=== PATIENT | male | born 1965 | race Caucasian/White ===

== ENCOUNTER 2017-12-09 10:34 | Inpatient (IN) | payer OTHER ==
[~2017-12-09] VITALS: Ht 170.2 cm; Wt 67.1 kg
[2017-12-09] MEDS ORDERED: OPTIRAY 320 IV PRN (11:15)
[2017-12-09 11:38] LABS: BASO % 0.6 %; BASO ABS # 0.06 K/uL (0-0.2); EOS % 3.4 %; EOS ABS # 0.33 K/uL (0-0.5); HEMATOCRIT 42.8 % (42-52); HEMOGLOBIN 14.7 g/dL (14.0-18.0); IG# 0.02 K/uL (0.00-0.02); LYMPH % 16.7 %; LYMPH ABS # 1.62 K/uL (1.2-3.4); MEAN CORPUSCULAR HEMOGLOBIN 29.9 pg (25-34); MEAN CORPUSCULAR HGB CONC 34.3 g/dl (32-36); MEAN PLATELET VOLUME 8.9 fL (7.4-10.4); MONO % 7.6 %; MONO ABS # 0.74 K/uL (0.11-0.59); NEUT % 71.5 %; NEUT ABS # 6.93 K/uL (1.4-6.5); PLATELET COUNT 386 K/uL (130-400); RED CELL DISTRIBUTION WIDTH CV 13.1 % (11.5-14.5); RED CELL DISTRIBUTION WIDTH SD 41.6 fL (36.4-46.3)
[2017-12-09 11:42] LABS: ISTAT CREATININE 0.8 mg/dl (0.6-1.3); ISTAT IONIZED CALCIUM 1.14 mmol/l (1.12-1.32); ISTAT POTASSIUM 4.6 mEq/L (3.3-5.0)
[2017-12-09 11:47] LABS: PTT PATIENT 31.5 SECONDS (21.0-31.0)
[2017-12-09 11:56] LABS: ALBUMIN 4.1 gm/dl (3.4-5.0); CALCIUM 9.2 mg/dl (8.5-10.1); CREATININE 0.76 mg/dl (0.60-1.40)
[2017-12-09 11:59] LABS: TOTAL PROTEIN 7.8 gm/dl (6.4-8.2)
[2017-12-09] MEDS ORDERED: ASPI81TA28 PO (11:59)
[2017-12-09] MEDS ORDERED: AMLO-114 PO (11:59)
--- NOTE | 2017-12-09 12:02 | DIAGNOSTIC IMAGING REPORT ---
HEAD WITHOUT CONTRAST (CT) CT DOSE: HISTORY: Mental status change stroke like symtpooms for 3 days resolved TECHNIQUE: Multiaxial CT images of the head were performed without the use of intravenous contrast. A dose lowering technique was utilized adhering to the principles of ALARA. Comparison: None. Findings: The paranasal sinuses and mastoid air cells are clear. The calvarium and skull base are intact. The ventricles and sulci are within normal limits. There is no mass, hematoma, midline shift, or acute infarct. There appears to be a potential subacute infarct in subcortical position left superior parietal lobe. There is no evidence for acute intracranial hemorrhage. There is no midline shift. Calcification of the basal ganglia is noted bilaterally. Impression: 1. Small subacute/early chronic cortical infarct left superior parietal lobe. 2. Study is otherwise negative. The above report was generated using voice recognition software. It may contain grammatical, syntax or spelling errors. Electronically signed by: Sergio Ramon M.D. 12/09/2017 12:01 PM Dictated Date/Time: 12/09/2017 11:57 AM
--- NOTE | 2017-12-09 12:04 | DIAGNOSTIC IMAGING REPORT ---
CT HEAD ANGIO WITH CONTRAST CLINICAL HISTORY: Stroke like symptoms. Right carotid bruit. TECHNIQUE: CT angiography of the head was performed in a dynamic helical fashion during intravenous administration of 120 cc of Optiray 320. A dose lowering technique was utilized adhering to the principles of ALARA. MIP imaging was performed. CT DOSE: COMPARISON STUDY: No previous studies for comparison. FINDINGS: The high left cervical internal carotid artery appears occluded. There is reconstitution of the left internal carotid artery at the cavernous level. The left supraclinoid carotid is small. There are no intracranial branch occlusions. There are no lesion suspicious for aneurysm. There is no evidence of dural venous sinus thrombosis. IMPRESSION: 1. No evidence of aneurysm 2. Occlusion of the left internal carotid artery with reconstitution at the level of the cavernous carotid Electronically signed by: Jhoan Dior M.D. 12/09/2017 12:03 PM Dictated Date/Time: 12/09/2017 12:00 PM
--- NOTE | 2017-12-09 12:13 | DIAGNOSTIC IMAGING REPORT ---
CT NECK ANGIO WITH CONTRAST CLINICAL HISTORY: Stroke like symptoms. Right carotid bruit. COMPARISON STUDY: No previous studies for comparison. TECHNIQUE: CT angiography was performed from the aortic arch to the skull base. MIP imaging was performed. The patient was scanned in a dynamic helical fashion during intravenous administration of 120 cc of Optiray 320. A dose lowering technique was utilized adhering to the principles of ALARA. CT DOSE: 1271.69 mGy.cm Technique: CT angiogram of the carotid and vertebral arteries was obtained using intravenous contrast and 3-D reconstruction. NASCET criteria was utilized. Findings: There are extensive atheromatous changes present the level of the right carotid bulb. There is a 75% diameter stenosis of the proximal right internal carotid artery. The left internal carotid artery is occluded at its origin. There is reconstitution at the level of the left cavernous carotid. There is a high-grade stenosis of the proximal left external carotid artery. There is dense calcification of the left vertebral origin. A hemodynamically significant stenosis is likely present, as there is poststenotic dilatation. A lucency within the proximal basilar artery likely represents a fenestration. There is no evidence of hemodynamic significant right vertebral artery stenosis. The right vertebral artery appears dominant IMPRESSION: 1. Occlusion of the left internal carotid artery at its origin with reconstitution at the level of the left cavernous carotid 2. 75% diameter stenosis of the proximal right internal carotid artery 3. Hemodynamically significant stenosis involving the left vertebral artery origin 4. High-grade stenosis of the proximal left external carotid artery Electronically signed by: Jhoan Dior M.D. 12/09/2017 12:12 PM Dictated Date/Time: 12/09/2017 12:03 PM
[2017-12-09 12:21] LABS: INFLUENZA B ANTIGEN Neg for Influ B (NEG)
[2017-12-09] MEDS ORDERED: ASPIRIN 81 MG ECTAB PO STA (12:29)
[2017-12-09] MEDS ORDERED: PHARMACIST DISCHARGE MED REC CONSULT PRN (13:15)
[2017-12-09] MEDS ORDERED: ACETAMINOPHEN 325 MG TAB PO PRN (13:15)
[2017-12-09] MEDS ORDERED: CLONIDINE HCL 0.1 MG TAB PO PRN (13:15)
[2017-12-09] MEDS ORDERED: ONDANSETRON INJ 2 MG/ML 2 ML VIAL IV PRN (13:15)
[2017-12-09] MEDS ORDERED: MAGNESIUM HYDROXIDE SUSP 30 ML UDC PO PRN (13:15)
--- NOTE | 2017-12-09 13:15 | History and Physical ---
History & Physical Date & Time of Service: Dec 09, 2017 at 13:14 Chief Complaint: Stroke Symptoms Primary Care Physician: Cory TOUSSAINT History of Present Illness Source: patient 52 year old male with history of HTN, Smoking presenting with episode of expressive aphasia and dysarthria. Last Wednesday, patient while reading at night, noticed that he had difficulty understanding what he was reading. This lasted about 2 hours. Yesterday, patient apparently had episodes of expressive aphasia and dysarthria as well. Today, patient was sent to the ER for further evaluation. CT head showed Small subacute/early chronic cortical infarct left superior parietal lobe. CT angio of the neck showed: R 100% occlusion L 75% stenosis. On exam, patient states he is back to baseline, denies any neurologic symptom. Denies any other symptoms. States he feels fine. Family History Stroke- Father Social History Smoking Status: Current Every Day Smoker Alcohol Use: occasionally Allergies Coded Allergies: No Known Allergies (Unverified , 12/09/17) Home Medications Scheduled Amlodipine (Norvasc), 10 MG PO 0630 Aspirin (Aspirin Ec), 81 MG PO 1830 Review of Systems Constitutional- no fever; no weight loss Eyes- no acute visual changes ENT- no sinus drainage; no pharyngitis Pulmonary- no cough, no wheezing, no shortness of breath Cardiac- no chest pain, no palpitations, no orthopnea, no dependent edema GI- no nausea, no vomiting, no diarrhea, no melena, no hematochezia - no dysuria, no hematuria Musculoskeletal- no arthralgias, no myalgias Derm- no rashes, no new skin lesions, no changing skin lesions Hematologic- no unusual bruising, no unusual bleeding Lymphatics- no adenopathy Endocrine- no polyuria or polydipsia; no heat or cold intolerance Neuro- (+) as noted above Psych- no anxiety, no depression Physical Exam Vital Signs Date Time Temp Pulse Resp B/P (MAP) Pulse Ox O2 Delivery O2 Flow Rate FiO2 12/09/17 12:34 63 17 96 12/09/17 12:30 62 18 97 Room Air 134/77 12/09/17 12:00 137/77 12/09/17 11:55 137/80 12/09/17 11:22 147/81 12/09/17 11:05 69 12/09/17 11:00 132/79 12/09/17 10:58 68 18 138/85 100 Room Air 12/09/17 10:36 36.5 75 18 142/81 100 Room Air General Appearance: WD/WN, no apparent distress Head: normocephalic, atraumatic Eyes: normal inspection, PERRL, EOMI, sclerae normal ENT: normal ENT inspection, hearing grossly normal, pharynx normal Neck: supple, no adenopathy, thyroid normal, no JVD, trachea midline Respiratory/Chest: chest non-tender, lungs clear, normal breath sounds, no respiratory distress, no accessory muscle use Cardiovascular: regular rate, rhythm, no edema, no JVD, no murmur Abdomen/GI: normal bowel sounds, non tender, soft Back: normal inspection, no CVA tenderness Extremities/Musculoskelatal: normal inspection, no calf tenderness, normal capillary refill, no pedal edema, normal range of motion, non-tender Neurologic/Psych: manager critical care unit II-XII nml as tested, no motor/sensory deficits, alert, normal reflexes, oriented x 3 Skin: normal color, warm/dry, no rash Lymphatic: no adenopathy Diagnostics Laboratory Results Results Past 24 Hours Test 12/09/17 11:15 12/09/17 11:16 12/09/17 11:22 12/09/17 11:25 Range/Units White Blood Count 9.70 4.8-10.8 K/uL Red Blood Count 4.92 4.7-6.1 M/uL Hemoglobin 14.7 14.0-18.0 g/dL Hematocrit 42.8 42-52 % Mean Corpuscular Volume 87.0 80-100 fL Mean Corpuscular Hemoglobin 29.9 25-34 pg Mean Corpuscular Hemoglobin Concent 34.3 32-36 g/dl Platelet Count 386 130-400 K/uL Mean Platelet Volume 8.9 7.4-10.4 fL Neutrophils (%) (Auto) 71.5 % Lymphocytes (%) (Auto) 16.7 % Monocytes (%) (Auto) 7.6 % Eosinophils (%) (Auto) 3.4 % Basophils (%) (Auto) 0.6 % Neutrophils # (Auto) 6.93 1.4-6.5 K/uL Lymphocytes # (Auto) 1.62 1.2-3.4 K/uL Monocytes # (Auto) 0.74 0.11-0.59 K/uL Eosinophils # (Auto) 0.33 0-0.5 K/uL Basophils # (Auto) 0.06 0-0.2 K/uL RDW Standard Deviation 41.6 36.4-46.3 fL RDW Coefficient of Variation 13.1 11.5-14.5 % Immature Granulocyte % (Auto) 0.2 % Immature Granulocyte # (Auto) 0.02 0.00-0.02 K/uL Prothrombin Time 11.0 9.0-12.0 SECONDS Prothromb Time International Ratio 1.0 0.9-1.1 Activated Partial Thromboplast Time 31.5 21.0-31.0 SECONDS Partial Thromboplastin Ratio 1.2 Sodium Level 137 136-145 mmol/L Potassium Level 4.0 3.5-5.1 mmol/L Chloride Level 104 98-107 mmol/L Carbon Dioxide Level 27 21-32 mmol/L Anion Gap 6.0 12.0 16-25 mmol/L Blood Urea Nitrogen 7 7-18 mg/dl Creatinine 0.76 0.60-1.40 mg/dl Est Creatinine Clear Calc Drug Dose 107.5 ml/min Estimated GFR () 119.9 Estimated GFR (Non- 103.4 BUN/Creatinine Ratio 9.4 10-20 Random Glucose 89 70-99 mg/dl Calcium Level 9.2 8.5-10.1 mg/dl Total Bilirubin 1.0 0.2-1 mg/dl Aspartate Amino Transf (AST/SGOT) 14 15-37 U/L Alanine Aminotransferase (ALT/SGPT) 18 12-78 U/L Alkaline Phosphatase 61 45-117 U/L Total Protein 7.8 6.4-8.2 gm/dl Albumin 4.1 3.4-5.0 gm/dl Globulin 3.7 2.5-4.0 gm/dl Albumin/Globulin Ratio 1.1 0.9-2 Bedside Glucose 98 70-99 mg/dl Bedside Hemoglobin 14.6 14.0-18.0 g/dl Bedside Hematocrit 43 42-52 % Bedside Sodium 139 135-144 mEq/L Bedside Potassium 4.6 3.3-5.0 mEq/L Bedside Chloride 103 101-112 mEq/L Bedside Total CO2 30 24-31 mEq/l Bedside Blood Urea Nitrogen 7 7-18 mg/dl Bedside Creatinine 0.8 0.6-1.3 mg/dl Bedside Glucose (other) 93 70-99 mg/dl Bedside Ionized Calcium (Becky) 1.14 1.12-1.32 mmol/l Influenza Type A Antigen Neg for Influ A NEG Influenza Type B Antigen Neg for Influ B NEG Test 12/09/17 13:08 Range/Units Diagnostic Radiology CT head: as noted in H&P EKG HR normal regular rhythm, no signs of acute ischemia Impression Assessment and Plan 52 year old male with history of HTN, Smoking presenting with episode of expressive aphasia and dysarthria. ACUTE CVA, LEFT PARIETAL LOBE BILATERAL CAROTID ARTERY STENOSIS - hold Amlodipine maintain BP on the higher side for brain perfusion - Stroke Protocol ordered - Echo ordered - Plavix added to ASA Lipitor also started - check A1c and Lipid profile - will consult Neuro and Vascular Surg HTN - mgt as noted above DVT proph - Lovenox Full Code per patient Dispo [facility] once work up is complete and patient is medically stable VTE Prophylaxis VTE Risk Assessment Done? Y/N: Yes Risk Level: Moderate Given or contraindicated: Enoxaparin (Lovenox)SQ
[2017-12-09] MEDS ORDERED: CLOPIDOGREL BISULFATE 75 MG TAB PO ONE (13:30)
--- NOTE | 2017-12-09 14:02 | EMERGENCY ROOM VISIT NOTE ---
History Report prepared by Divineibmariel: Yoav Hughes Under the Supervision of: Dr. Brayan Diaz M.D. First contact with patient: 10:42 Chief Complaint: STROKE SYMPTOMS Stated Complaint: STROKE SYMPTOMS Nursing Triage Summary: pt here from [facility] 3 days slurred speech, lack of coordination, left facial droop, right cartoid bruit. no facial droop noted in triage pt able to answer questions . states unable to read book. pt able to ambulate to triage on own. states he is not having problems gripping cup or glass History of Present Illness The patient is a 52 year old male who presents to the Emergency Room with complaints of resolved neurologic symptoms beginning three days ago. His primary symptom has been slurred speech and difficulty speaking. He is an inmate at [facility]. The patient states that he was able to think of the words, but has had difficulty speaking the words. He states that his symptoms improved today. He states "I am not sure why they brought me in today honestly" . He denies LOC, or recent head injury. Source of History: patient Onset: Three days ago Quality: other (slurred speech and difficulty speaking) Timing: resolved Associated Symptoms: No LOC Note: Additional symptoms: Review of Systems See HPI for pertinent positives and negatives. A total of ten systems were reviewed and were otherwise negative. Past Medical & Surgical Medical Problems: (1) Acute ischemic stroke (2) No Known Active Medical Problems Family History No pertinent family history stated. Social History Smoking Status: Current Every Day Smoker Housing Status: other (incarcerated) Occupation Status: other (incarcerated) Current/Historical Medications Scheduled Amlodipine (Norvasc), 10 MG PO 0630 Aspirin (Aspirin Ec), 81 MG PO 1830 Allergies Coded Allergies: No Known Allergies (Unverified , 12/09/17) Physical Exam Vital Signs Date Time Temp Pulse Resp B/P (MAP) Pulse Ox O2 Delivery O2 Flow Rate FiO2 12/09/17 12:34 63 17 96 12/09/17 12:30 62 18 97 Room Air 134/77 12/09/17 12:00 137/77 12/09/17 11:55 137/80 12/09/17 11:22 147/81 12/09/17 11:05 69 12/09/17 11:00 132/79 12/09/17 10:58 68 18 138/85 100 Room Air 12/09/17 10:36 36.5 75 18 142/81 100 Room Air Physical Exam GENERAL: Awake, alert, well-appearing, in no distress. Handcuffed to bed. HENT: Normocephalic, Atraumatic. no hemotympanum bilaterally, sabillon sign negative bilaterally. Oropharynx unremarkable. EYES: Normal conjunctiva. Sclera non-icteric. PERRL bilaterally. EOMI bilaterally. NECK: Supple. No nuchal rigidity. FROM. No JVD. No C-spine tenderness. Right carotid bruit noted. No left carotid bruit. RESPIRATORY: Clear to auscultation. No wheezes, rhonchi or rales bilaterally. CARDIAC: Regular rate, normal rhythm. Extremities warm and well perfused. Equal palpable radial pulses to the bilateral upper extremities. Equal palpable DP pulses to the bilateral lower extremities. ABDOMEN: Soft, non-distended. No tenderness to palpation. No rebound or guarding. No masses. Rovsig Negative. RECTAL: Deferred. MUSCULOSKELETAL: Chest examination reveals no tenderness. The back is symmetrical on inspection without obvious abnormality. There is no CVA tenderness to palpation. No joint edema. LOWER EXTREMITIES: Calves are equal size bilaterally and non-tender. No edema. No discoloration. NEURO: Normal sensorium. No sensory or motor deficits noted. No pronator drift. No facial droop. No dysarthria. NIHSS 0 SKIN: No rash or jaundice noted. Medical Decision & Procedures ER Provider Diagnostic Interpretation: Radiology results as stated below per my review and radiologist interpretation: HEAD WITHOUT CONTRAST (CT) Findings: The paranasal sinuses and mastoid air cells are clear. The calvarium and skull base are intact. The ventricles and sulci are within normal limits. There is no mass, hematoma, midline shift, or acute infarct. There appears to be a potential subacute infarct in subcortical position left superior parietal lobe. There is no evidence for acute intracranial hemorrhage. There is no midline shift. Calcification of the basal ganglia is noted bilaterally. Impression: 1. Small subacute/early chronic cortical infarct left superior parietal lobe. 2. Study is otherwise negative. The above report was generated using voice recognition software. It may contain grammatical, syntax or spelling errors. Electronically signed by: Sergio Ramon M.D. 12/09/2017 12:[address] NECK ANGIO WITH CONTRAST Findings: There are extensive atheromatous changes present the level of the right carotid bulb. There is a 75% diameter stenosis of the proximal right internal carotid artery. The left internal carotid artery is occluded at its origin. There is reconstitution at the level of the left cavernous carotid. There is a high-grade stenosis of the proximal left external carotid artery. There is dense calcification of the left vertebral origin. A hemodynamically significant stenosis is likely present, as there is poststenotic dilatation. A lucency within the proximal basilar artery likely represents a fenestration. There is no evidence of hemodynamic significant right vertebral artery stenosis. The right vertebral artery appears dominant IMPRESSION: 1. Occlusion of the left internal carotid artery at its origin with reconstitution at the level of the left cavernous carotid 2. 75% diameter stenosis of the proximal right internal carotid artery 3. Hemodynamically significant stenosis involving the left vertebral artery origin 4. High-grade stenosis of the proximal left external carotid artery Electronically signed by: Jhoan Dior M.D. 12/09/2017 12:[address] HEAD ANGIO WITH CONTRAST FINDINGS: The high left cervical internal carotid artery appears occluded. There is reconstitution of the left internal carotid artery at the cavernous level. The left supraclinoid carotid is small. There are no intracranial branch occlusions. There are no lesion suspicious for aneurysm. There is no evidence of dural venous sinus thrombosis. IMPRESSION: 1. No evidence of aneurysm 2. Occlusion of the left internal carotid artery with reconstitution at the level of the cavernous carotid Electronically signed by: Jhoan Dior M.D. 12/09/2017 12:03 PM Laboratory Results 12/09/17 11:15 Red Blood Count 4.92, Mean Corpuscular Volume 87.0, Mean Corpuscular Hemoglobin 29.9, Mean Corpuscular Hemoglobin Concent 34.3, Mean Platelet Volume 8.9, Neutrophils (%) (Auto) 71.5, Lymphocytes (%) (Auto) 16.7, Monocytes (%) (Auto) 7.6, Eosinophils (%) (Auto) 3.4, Basophils (%) (Auto) 0.6, Neutrophils # (Auto) 6.93, Lymphocytes # (Auto) 1.62, Monocytes # (Auto) 0.74, Eosinophils # (Auto) 0.33, Basophils # (Auto) 0.06 12/09/17 11:15 Test 12/09/17 11:15 12/09/17 11:16 2/8/18 11:22 12/09/17 11:25 White Blood Count 9.70 K/uL (4.8-10.8) Red Blood Count 4.92 M/uL (4.7-6.1) Hemoglobin 14.7 g/dL (14.0-18.0) Hematocrit 42.8 % (42-52) Mean Corpuscular Volume 87.0 fL (80-100) Mean Corpuscular Hemoglobin 29.9 pg (25-34) Mean Corpuscular Hemoglobin Concent 34.3 g/dl (32-36) Platelet Count 386 K/uL (130-400) Mean Platelet Volume 8.9 fL (7.4-10.4) Neutrophils (%) (Auto) 71.5 % Lymphocytes (%) (Auto) 16.7 % Monocytes (%) (Auto) 7.6 % Eosinophils (%) (Auto) 3.4 % Basophils (%) (Auto) 0.6 % Neutrophils # (Auto) 6.93 K/uL (1.4-6.5) Lymphocytes # (Auto) 1.62 K/uL (1.2-3.4) Monocytes # (Auto) 0.74 K/uL (0.11-0.59) Eosinophils # (Auto) 0.33 K/uL (0-0.5) Basophils # (Auto) 0.06 K/uL (0-0.2) RDW Standard Deviation 41.6 fL (36.4-46.3) RDW Coefficient of Variation 13.1 % (11.5-14.5) Immature Granulocyte % (Auto) 0.2 % Immature Granulocyte # (Auto) 0.02 K/uL (0.00-0.02) Prothrombin Time 11.0 SECONDS (9.0-12.0) Prothromb Time International Ratio 1.0 (0.9-1.1) Activated Partial Thromboplast Time 31.5 SECONDS (21.0-31.0) Partial Thromboplastin Ratio 1.2 Est Creatinine Clear Calc Drug Dose 107.5 ml/min Estimated GFR () 119.9 Estimated GFR (Non- 103.4 BUN/Creatinine Ratio 9.4 (10-20) Estimated Average Glucose 111 mg/dl Hemoglobin A1c 5.5 % (4.5-5.6) Calcium Level 9.2 mg/dl (8.5-10.1) Total Bilirubin 1.0 mg/dl (0.2-1) Aspartate Amino Transf (AST/SGOT) 14 U/L (15-37) Alanine Aminotransferase (ALT/SGPT) 18 U/L (12-78) Alkaline Phosphatase 61 U/L (45-117) Total Protein 7.8 gm/dl (6.4-8.2) Albumin 4.1 gm/dl (3.4-5.0) Globulin 3.7 gm/dl (2.5-4.0) Albumin/Globulin Ratio 1.1 (0.9-2) Bedside Glucose 98 mg/dl (70-99) Bedside Hemoglobin 14.6 g/dl (14.0-18.0) Bedside Hematocrit 43 % (42-52) Bedside Sodium 139 mEq/L (135-144) Bedside Potassium 4.6 mEq/L (3.3-5.0) Bedside Chloride 103 mEq/L (101-112) Bedside Total CO2 30 mEq/l (24-31) Anion Gap 12.0 mmol/L (16-25) Bedside Blood Urea Nitrogen 7 mg/dl (7-18) Bedside Creatinine 0.8 mg/dl (0.6-1.3) Bedside Glucose (other) 93 mg/dl (70-99) Bedside Ionized Calcium (Becky) 1.14 mmol/l (1.12-1.32) Influenza Type A Antigen Neg for Influ A (NEG) Influenza Type B Antigen Neg for Influ B (NEG) Laboratory results reviewed by me Medications Administered Medications (Trade) Dose Ordered Sig/Erasmo Route Start Time Stop Time Status Last Admin Dose Admin Aspirin (Ecotrin Tab) 325 mg NOW STAT PO 12/09/17 12:29 12/09/17 12:40 DC 12/09/17 13:20 325 MG ECG Indication: other (neurologic symptoms) Rate (beats per minute): 67 Rhythm: sinus rhythm Findings: no acute ischemic change, no ectopy, other (QRS and QTC intervals within normal limits. No ST elevation or ST depression. Baseline artifact.) ED Course 1044: The patient was evaluated in room C6. A complete history and physical exam was performed. NIHSS of 0 at this time. 1234: The patient's vital signs are stable. CT shows subacute/early chronic cortical infarct of the left superior parietal lobe. CTA neck also shows occlusion of the bilateral carotid arteries in addition to the left vertebral artery. Patient's symptoms are likely due to CVA from occlusions of carotid arteries. He is out of the window for TPA since his symptoms began three days ago and resolved today. Patient will be admitted to the hospitalist service, and with vascular consult. Longterm guards were made aware of the plan at bedside. Medical Decision The patient's vital signs are stable. CT shows subacute/early chronic cortical infarct of the left superior parietal lobe. CTA neck also shows occlusion of the bilateral carotid arteries in addition to the left vertebral artery. Patient 's symptoms are likely due to CVA from occlusions of carotid arteries. He is out of the window for TPA since his symptoms began three days ago and resolved today. Patient will be admitted to the hospitalist service, and with vascular consult. Longterm guards were made aware of the plan at bedside. Medication Reconcilliation Current Medication List: was personally reviewed by me Blood Pressure Screening Patient's blood pressure: Elevated blood pressure Blood pressure disposition: Elevated BP felt to be situational Consults Time Called: 1220 Consulting Physician: Dr. Andrew Khan Hospitalist Returned Call: 1224 Discussed the patient's case. The patient will be evaluated for further treatment and disposition. Impression Primary Impression: CVA (cerebral vascular accident) Additional Impressions: Carotid artery stenosis Vertebral artery stenosis Scribe Attestation The scribe's documentation has been prepared under my direction and personally reviewed by me in its entirety. I confirm that the note above accurately reflects all work, treatment, procedures, and medical decision making performed by me. The chart was completed utilizing [employer] Speech voice recognition software. Grammatical errors, random word insertions, pronoun errors, and incomplete sentences are an occasional consequence of this system due to software limitations, ambient noise, and hardware issues. Any formal questions or concerns about the content, text, or information contained within the body of this dictation should be directly addressed to the physician for clarification. Departure Information Dispostion Being Evaluated By Hospitalist Patient Instructions My [facility] Stroke History Time Last Known Well Three days ago Stroke t-PA Criteria Reviewed Does NOT meet criteria for t-PA Reason t-PA Not Given Treatment not indicated (outside of the time window) Problem Qualifiers
[2017-12-09 14:33] LABS: HEMOGLOBIN A1C 5.5 % (4.5-5.6)
[2017-12-09 15:38] VITALS: BP 172/79; PULSE 65; TEMP 37; O2SAT 98; Ht 170.2 cm; Wt 67.1 kg
[2017-12-09] MEDS: ENOXAPARIN 40 MG/0.4 ML SYR SC SCH (16:46)
[2017-12-09] MEDS: SODIUM CHLORIDE 0.9% 1000ML 1,000 ML IV SCH (16:46)
[2017-12-09 19:23] VITALS: BP 154/81; PULSE 58; TEMP 36.4; O2SAT 96
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
[2017-12-09 20:23] VITALS: BP 154/81; PULSE 58; TEMP 36.4; O2SAT 96
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
[2017-12-10] VITALS (7 sets, daily range): BP systolic 125–138; BP diastolic 72–84; PULSE 58–68; TEMP 36.6–36.9; O2SAT 95–97
[2017-12-10] MEDS: SODIUM CHLORIDE 0.9% 1000ML 1,000 ML IV SCH ×3 (01:00→11:17)
[2017-12-10 06:06] LABS: BASO % 1.1 %; BASO ABS # 0.09 K/uL (0-0.2); EOS % 4.4 %; EOS ABS # 0.36 K/uL (0-0.5); HEMOGLOBIN 13.3 g/dL (14.0-18.0); IG# 0.01 K/uL (0.00-0.02); LYMPH % 20.7 %; LYMPH ABS # 1.68 K/uL (1.2-3.4); MEAN CELL VOLUME 86.9 fL (80-100); MEAN CORPUSCULAR HEMOGLOBIN 29.6 pg (25-34); MEAN CORPUSCULAR HGB CONC 34.1 g/dl (32-36); MEAN PLATELET VOLUME 8.7 fL (7.4-10.4); MONO % 9.9 %; NEUT % 63.8 %; NEUT ABS # 5.16 K/uL (1.4-6.5); PLATELET COUNT 345 K/uL (130-400); RED CELL DISTRIBUTION WIDTH SD 41.5 fL (36.4-46.3)
[2017-12-10 06:22] LABS: CALCIUM 8.2 mg/dl (8.5-10.1); CREATININE 0.64 mg/dl (0.60-1.40); POTASSIUM 3.9 mmol/L (3.5-5.1)
[2017-12-10] MEDS ORDERED: CLOPIDOGREL BISULFATE 75 MG TAB PO SCH (09:00)
[2017-12-10] MEDS ORDERED: ATORVASTATIN 40 MG TAB PO SCH (09:00)
--- NOTE | 2017-12-10 09:52 | Surgery Consultation ---
Consultation Date of Service Dec 10, 2017. (Luana Luo PA-C) Chief Complaint CVA/TIA, ICAS (Luana Luo PA-C) History of Present Illness The patient is a 52 year old male with hx of HTN, admitted after an episode of aphasia/dysarthria, seen in consultation today for BL ICAS noted on CTA. Pt states no previous similar event. and sx resolved within 24 hrs. Father had CVA. Denies unilateral extremity weakness or numbness, amaurosis, facial droop , DAO, fever, chills, recent illness, chest pain, palpitations, SOB, abd pain, N/ V, rest pain, claudication, other complaints. Smokes 1/2 PPD. (Luana Luo PA-C) Vitals Vital Signs Past 12 Hours Date Time Temp Pulse Resp B/P (MAP) Pulse Ox O2 Delivery O2 Flow Rate FiO2 12/10/17 08:00 Room Air 12/10/17 07:11 36.9 67 18 125/77 (93) 95 Room Air 12/10/17 04:18 Room Air 12/10/17 04:10 36.7 58 18 136/72 (93) 97 12/10/17 00:40 Room Air 12/10/17 00:22 36.7 68 12/10/17 00:01 36.7 68 16 138/84 (102) 95 (Luana Luo PA-C) Allergies Coded Allergies: No Known Allergies (Unverified , 12/09/17) Home Medications Scheduled Amlodipine (Norvasc), 10 MG PO 0630 Aspirin (Aspirin Ec), 81 MG PO 1830 Problem List Medical Problems: (1) Acute ischemic stroke (2) No Known Active Medical Problems (Luana Luo PA-C) Surgical / Medical History Hx Cardiac Surgery: No Hx Abdominal Surgery: No Hx Cancer Surgery: No Hx Thoracic Surgery: No Hx Orthopedic: No Hx Urinary Tract Surgery: No HX Other Surgery: No Past Medical/Surgical History: Hypertension (Luana Luo PA-C) Family History Father CVA (Luana Luo PA-C) Social History Smoking Status: Current Every Day Smoker Hx Tobacco Use In Past Year?: Yes Hx Alcohol Use - Type & Amnt: No Hx Substance Use -Type & Amnt: No (Luana Luo PA-C) Review of Systems Constitutional: No chills, No fever, No malaise Skin: No change in color Eyes: No visual changes ENMT: No sore throat Respiratory: No cough, No RUEDA, No short of breath Cardiovascular: No chest pain, No palpitations, No syncope, No edema, No intermittent claudication Gastrointestinal: No abdominal pain, No vomiting, No anorexia Neurologic: + problem reported (aphasia, resolved), No dizziness, No weakness, No headache, No lethargy, No numbness, No tingling (Luana Luo, JACKC) Physical Exam Constitutional: General Apperance: heathly-appearing, well-nourished, well-developed Level of Distress: NAD Ambulation: ambulating normally Psychiatric: Mental Status: active & alert, normal mood, normal affect Orientation: oriented except where noted, to time, to place, to person Memory: recent memory normal, remote memory normal Head: normocephalic, atraumatic Eyes: EOM: EOMI ENMT: normal ENT inspection, hearing grossly normal Neck: supple, trachea midline Lungs: Respiratory effort: no dyspnea Auscultation: no rales/crackles, no rhonchi, decreased breath sounds, expiratory wheezing Cardiovascular: Apical Impulse: not displaced Heart Auscultation: RRR, no rubs, no gallops Peripheral Pulses: Pulses: full and equal, in all extremities except if noted Bruits: carotid bruit on the right Carotid Pulse: normal on the left, normal on the right Brachial Pulses: normal on the left, normal on the right Radial Pulse: normal on the left, normal on the right Femoral Pulse: normal on the left, normal on the right Posterior Tibialis Pulse: decreased on the left, decreased on the right Dorsalis Pedis Pulse: decreased on the left, absent on the right Abdomen: Bowel Sounds: normal Inspection & Palpation: soft, non-distended, no tenderness, guarding & rebound Musculoskeletal: normal strength (5/5 throughout), normal tone Extremities: Upper Right: no cyanosis, no edema, no varicosities Upper Left: no cyanosis, no edema, no varicosities Lower Right: no cyanosis, no edema, no varicosities Lower Left: no cyanosis, no edema, no varicosities Neurologic: Cranial Nerves: grossly intact Sensation: grossly intact (Luana Luo, PA-C) Assessment and Plan ASSESSMENT and PLAN: 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 No intervention to be performed on L ICA. Pt also seen by Dr Wilson, recommends R CEA to be performed in 4-6 wks to reduce risk of future CVA. Pt agreeable. WIll see in office in 4 wks to discuss further. Please call if needed. (Luana Luo, PA-C) Patient was seen, examined, and chart reviewed. Agree with exam and treatment plan of the Vascular PA. Thank you very much for letting me participate in the care of this patient. (Bairon Wilson M.D.)
--- NOTE | 2017-12-10 10:41 | ECHOCARDIOGRAM REPORT ---
*NOTICE TO RECEIVING REPUBLICAN AGENCY This information is strictly Confidential and protected under [place] law. [place] law prohibits you from making any further disclosure of this information unless further disclosure is expressly permitted by the written consent of the person to whom it pertains or is authorized by law. A general authorization for the release of medical or other information is not sufficient for this purpose. Hospital accepts no responsibility if the information is made available to any other person, INCLUDING THE PATIENT. Interpretation Summary * Name: MAICOL GALEAS [id number] Study Date: 12/10/2017 06:56 AM BP: 136/72 mmHg * Patient Location: C.2T\S\S229\S\2 HR: 58 * : 1965 (M/d/yyyy) Gender: Male Height: 68 in * Age: 52 yrs Ethnicity: CA Weight: 150 lb * Ordering Physician: Juice Nelson * Referring Physician: oCry TOUSSAINT * Performed By: Angelika Youssef RDCS * * Reason For Study: Cerebral ischemia/embolus * BSA: 1.8 m2 * The study was technically adequate. * There is no comparison study available. * -- Conclusions -- * Ejection Fraction = 60-65%. * The left ventricular wall motion is normal. * Pulse wave TDI of the anterior and posterior mitral annulas demonstrates normal LV relaxation * There is trace tricuspid regurgitation. * Doppler findings do not suggest pulmonary hypertension. * Injection of contrast documented no interatrial shunt. Procedure Details * A complete two-dimensional transthoracic echocardiogram was performed (2D, M-mode, Doppler and color flow Doppler). * A saline contrast injection was performed to assess for cardiac shunting. * The injection was performed through an intravenous line in the left arm. * The attending nurse who injected the saline contrast was Theron Sampson RN. * A total of 20 cc of agitated saline was given. Left Ventricle * The left ventricle is normal in size. * There is no thrombus. * There is normal left ventricular wall thickness. * Ejection Fraction = 60-65%. * Left ventricular systolic function is normal. * The left ventricular wall motion is normal. Right Ventricle * The right ventricle is normal size. * The right ventricular systolic function is normal as assessed by tricuspid annular plane systolic excursion (TAPSE) (normal >1.5 cm). Atria * The left atrial size is normal. * Right atrial size is normal. * The interatrial septum is intact with no evidence for an atrial septal defect. * Injection of contrast documented no interatrial shunt. Mitral Valve * The mitral valve is normal. * There is no mitral valve stenosis. * Significant mitral regurgitation is absent. Tricuspid Valve * The tricuspid valve is normal. * There is no tricuspid stenosis. * There is trace tricuspid regurgitation. * Doppler findings do not suggest pulmonary hypertension. Aortic Valve * The aortic valve is trileaflet. * Aortic stenosis is absent. * There is no significant aortic regurgitation. Pulmonic Valve * The pulmonary valve is not well seen, but the Doppler examination is normal without significant regurgitation or stenosis. Great Vessels * The aortic root and proximal ascending aorta are normal sized. Pericardium/Pleural * There is no pericardial effusion. Great Vessels * Normal inferior vena cava diameter and respiratory variation suggests normal central venous pressure. Left Ventricular Diastolic Function * Pulse wave TDI of the anterior and posterior mitral annulas demonstrates normal LV relaxation MMode 2D Measurements and Calculations IVSd 1.0 cm LVIDd 4.2 cm LVIDs 2.9 cm LVPWd 1.1 cm IVS/LVPW 0.96 FS 30.8 % EDV(Teich) 78.5 ml ESV(Teich) 32.3 ml EF(Teich) 58.8 % EDV(cubed) 73.9 ml ESV(cubed) 24.5 ml EF(cubed) 66.9 % LV mass(C)d 147.1 grams LV mass(C)dI 81.3 grams/m\S\2 SV(Teich) 46.1 ml SI(Teich) 25.5 ml/m\S\2 SV(cubed) 49.4 ml SI(cubed) 27.3 ml/m\S\2 Ao root diam 2.9 cm Ao root area 6.7 cm\S\2 ACS 1.8 cm LA dimension 2.5 cm asc Aorta Diam 2.9 cm LA/Ao 0.86 LVOT diam 2.0 cm LVOT area 3.2 cm\S\2 LVAd ap4 26.1 cm\S\2 LVLd ap4 6.6 cm EDV(MOD-sp4) 81.2 ml EDV(sp4-el) 87.2 ml LVAs ap4 13.8 cm\S\2 LVLs ap4 5.5 cm ESV(MOD-sp4) 29.2 ml ESV(sp4-el) 29.6 ml EF(MOD-sp4) 64.0 % EF(sp4-el) 66.1 % LVAd ap2 27.2 cm\S\2 LVLd ap2 7.5 cm EDV(MOD-sp2) 83.1 ml EDV(sp2-el) 83.5 ml LVAs ap2 15.0 cm\S\2 LVLs ap2 6.1 cm ESV(MOD-sp2) 30.8 ml ESV(sp2-el) 31.2 ml EF(MOD-sp2) 63.0 % EF(sp2-el) 62.6 % LVLd %diff 11.8 % EDV(MOD-bp) 86.2 ml LVLs %diff 9.8 % ESV(MOD-bp) 31.5 ml EF(MOD-bp) 63.5 % SV(MOD-sp4) 52.0 ml SI(MOD-sp4) 28.7 ml/m\S\2 SV(MOD-sp2) 52.4 ml SI(MOD-sp2) 28.9 ml/m\S\2 SV(MOD-bp) 54.7 ml SI(MOD-bp) 30.3 ml/m\S\2 SV(sp4-el) 57.6 ml SI(sp4-el) 31.8 ml/m\S\2 SV(sp2-el) 52.3 ml SI(sp2-el) 28.9 ml/m\S\2 Doppler Measurements and Calculations MV E max yudy 98.0 cm/sec MV A max yudy 89.2 cm/sec MV E/A 1.1 MV dec time 0.21 sec Ao V2 max 134.2 cm/sec Ao max PG 7.2 mmHg Ao max PG (full) 2.5 mmHg HAY(V,A) 2.6 cm\S\2 HAY(V,D) 2.6 cm\S\2 LV V1 max PG 4.7 mmHg LV V1 max 108.7 cm/sec PA V2 max 103.2 cm/sec PA max PG 4.3 mmHg PA acc slope 588.6 cm/sec\S\2 PA acc time 0.12 sec TR max yudy 262.4 cm/sec PA pr(Accel) 26.7 mmHg
[2017-12-10] MEDS ORDERED: METOPROLOL TARTRATE 1 MG/ML VIAL ONE (14:07)
[2017-12-10] MEDS ORDERED: DOBUTamine HCL 12.5 MG/ML 20 ML VIAL ONE (14:07)
[2017-12-10] MEDS ORDERED: ATROPINE SULFATE 0.1 MG/ML 5ML SYR ONE (14:08)
--- NOTE | 2017-12-10 15:15 | PROGRESS NOTE ---
DATE: 12/10/2017 I tried to see Alfonso today but he was down having a stress echo at the request of Dr. Wilson the vascular surgeon who has seen him in consultation and agrees that in the future he may will need an operative intervention on the right internal carotid artery, which is providing perfusion to his right and left hemispheres in light of the fact that the left internal carotid is totally occluded. This man has had a small stroke. He is apparently back to his baseline according to the nursing staff and I think he could be discharged to the unit at [facility] and continued on aspirin and Plavix until evaluated by Dr. Wilson on an outpatient basis. Since I did not seen him I am not going to render a consultation bill, but the plan seems to be a reasonable one at this point in time. MTDTayla
[2017-12-10] MEDS: ENOXAPARIN 40 MG/0.4 ML SYR SC SCH (16:12)
--- NOTE | 2017-12-10 17:13 | Progress Note ---
Medicine Progress Note Date & Time of Visit: Dec 10, 2017 at 17:01. Subjective patient seen sitting up in bed, comfortable states he feels fine overall no dysarthria, aphasia no other focal neuro symptoms states he is back to baseline and is ready for discharge today denies other symptoms Objective Last 8 Hrs Date Time Temp Pulse Resp B/P (MAP) Pulse Ox O2 Delivery O2 Flow Rate FiO2 12/10/17 15:50 36.8 60 19 127/73 (91) 97 Room Air 12/10/17 12:00 Room Air 12/10/17 11:55 36.6 62 20 128/75 (92) 96 Room Air Physical Exam: General- oriented x 3, not in distress, speaks in sentences with no effort Eyes- anicteric ENT- oropharynx clear Neck- supple, no JVD Lungs- clear breath sounds bilaterally, no rales/wheezes Heart- regular rhythm; no murmur, no gallop, no rub appreciated Abdomen- normal bowel sounds, soft, nontender Extremities- no pretibial edema, no calf tenderness; peripheral pulses intact Neuro- alert, oriented x 3; PERRL, EOMI; no facial palsy; no dysarthria; motor 5 /5 bilaterally; sensation 100% , no other gross focal deficits Skin- warm & dry Laboratory Results: Last 24 Hours Test 12/10/17 05:24 White Blood Count 8.10 K/uL Red Blood Count 4.49 M/uL Hemoglobin 13.3 g/dL Hematocrit 39.0 % Mean Corpuscular Volume 86.9 fL Mean Corpuscular Hemoglobin 29.6 pg Mean Corpuscular Hemoglobin Concent 34.1 g/dl Platelet Count 345 K/uL Mean Platelet Volume 8.7 fL Neutrophils (%) (Auto) 63.8 % Lymphocytes (%) (Auto) 20.7 % Monocytes (%) (Auto) 9.9 % Eosinophils (%) (Auto) 4.4 % Basophils (%) (Auto) 1.1 % Neutrophils # (Auto) 5.16 K/uL Lymphocytes # (Auto) 1.68 K/uL Monocytes # (Auto) 0.80 K/uL Eosinophils # (Auto) 0.36 K/uL Basophils # (Auto) 0.09 K/uL RDW Standard Deviation 41.5 fL RDW Coefficient of Variation 13.0 % Immature Granulocyte % (Auto) 0.1 % Immature Granulocyte # (Auto) 0.01 K/uL Sodium Level 137 mmol/L Potassium Level 3.9 mmol/L Chloride Level 106 mmol/L Carbon Dioxide Level 27 mmol/L Anion Gap 4.0 mmol/L Blood Urea Nitrogen 12 mg/dl Creatinine 0.64 mg/dl Est Creatinine Clear Calc Drug Dose 123.4 ml/min Estimated GFR () 128.7 Estimated GFR (Non- 111.0 BUN/Creatinine Ratio 18.3 Random Glucose 85 mg/dl Calcium Level 8.2 mg/dl Triglycerides Level 81 mg/dl Cholesterol Level 149 mg/dl HDL Cholesterol 32 mg/dl LDL Cholesterol, Calculated 101 mg/dl VLDL Cholesterol, Calculated 16 mg/dl Cholesterol/HDL Ratio 4.7 Assessment & Plan 52 year old male with history of HTN, Smoking presenting with episode of expressive aphasia and dysarthria. ACUTE CVA, LEFT PARIETAL LOBE and TEMPORAL LOBE BILATERAL CAROTID ARTERY STENOSIS - CT head: Small subacute/early chronic cortical infarct left superior parietal lobe. MRI Brain: IMPRESSION: 1. Findings consistent with small acute infarcts in the left middle cerebral artery territory distribution affecting the posterior left temporal lobe and left parietal lobe. No evidence of hemorrhagic conversion. 2. Loss of normal flow void in the left internal carotid artery. This finding correlates to the occlusion of the left internal carotid artery on CTA performed earlier today. CT angio neck: IMPRESSION: 1. No evidence of aneurysm 2. Occlusion of the left internal carotid artery with reconstitution at the level of the cavernous carotid Echo: -- Conclusions -- * Ejection Fraction = 60-65%. * The left ventricular wall motion is normal. * Pulse wave TDI of the anterior and posterior mitral annulas demonstrates normal LV relaxation * There is trace tricuspid regurgitation. * Doppler findings do not suggest pulmonary hypertension. * Injection of contrast documented no interatrial shunt. LDL 101 HDL 32 - Stroke Protocol ordered - held Amlodipine maintain BP on the higher side for brain perfusion, for a few days post stroke avoid hypotension monitor BP daily - Neurology consulted- Dr. Fortune Plavix 75mg daily added to ASA Lipitor increased to 80mg daily - Vascular Surgery consulted , Dr. Bairon Wilson recommend CEA of Right ICA in 4-6 weeks, ff up with Dr. Wilson in 4 weeks HTN - management as noted above DVT proph - Lovenox given Full Code per patient [facility] ff up with Dr. Simoni- Vascular Surgery in [facility] in 4 weeks Current Inpatient Medications: Current Inpatient Medications Medications (Trade) Dose Ordered Sig/Erasmo Route Start Time Stop Time Status Last Admin Dose Admin Ioversol (Optiray 320) 100 ml UD PRN IV 12/09/17 11:15 12/13/17 11:14 Clopidogrel Bisulfate (plAVix TAB) 75 mg QAM PO 12/10/17 09:00 01/09/18 08:59 12/10/17 08:35 75 MG Atorvastatin Calcium (Lipitor Tab) 40 mg QAM PO 12/10/17 09:00 01/09/18 08:59 12/10/17 08:35 40 MG Sodium Chloride 1,000 ml @ 125 mls/hr Q8H IV 12/09/17 13:15 01/08/18 13:14 12/10/17 11:17 125 MLS/HR Clonidine HCl (Catapres Tab) 0.1 mg Q6H PRN PO 12/09/17 13:15 01/08/18 13:14 Enoxaparin Sodium (Lovenox Inj) 40 mg Q24H SC 12/09/17 16:00 01/08/18 15:59 12/10/17 16:12 40 MG Acetaminophen (Tylenol Tab) 650 mg Q4H PRN PO 12/09/17 13:15 01/08/18 13:14 Magnesium Hydroxide (Milk Of Magnesia Susp) 30 ml Q12H PRN PO 12/09/17 13:15 01/08/18 13:14 Ondansetron HCl (Zofran Inj) 4 mg Q6H PRN IV 12/09/17 13:15 01/08/18 13:14
[2017-12-10] MEDS ORDERED: PLV75 PO (17:16)
[2017-12-10] MEDS ORDERED: LPT40 PO (17:16)
--- NOTE | 2017-12-10 17:19 | Discharge Instructions ---
Discharge Instructions Date of Service Dec 10, 2017. Admission Reason for Admission: Acute Ischemic Stroke Discharge Discharge Diagnosis / Problem: ACUTE CVA Discharge Goals Goal(s): Diagnostic testing, Therapeutic intervention Activity Recommendations Activity Limitations: as noted below (INCREASE ACTIVITY GRADUALLY TOLERATED) Lifting Limitations: until after follow-up appointment Exercise/Sports Limitations: until after follow-up appointment . Instructions / Follow-Up Instructions / Follow-Up PLEASE REVIEW YOUR NEW MEDICATION LIST AND FOLLOW INSTRUCTIONS CAREFULLY. FOLLOW UP WITH DR. JOSH GRIMES VASCULAR SURGEON IN [facility] IN 4 WEEKS. Risk Factors for Stroke: You can reduce your chances of stroke by working with your medical provider to adopt a healthy lifestyle. Some specific ways to lower your chance of stroke are: * If you are a smoker, now is the time to stop smoking cigarettes * If you are diabetic, improve the control of your blood sugars * Avoid excessive amounts of alcohol * Control high blood pressure * Lose weight if you are overweight * Be sure to lead an active lifestyle * Eat a healthy diet low in salt, cholesterol and fat You should know about other risk factors for stroke that you are unable to control. These include: * Age 55 years or older * Male gender * Certain racial groups: , or / * Family History of Stroke, Mini stroke or Heart Attack * Sickle Cell Disease Follow Up: It is important for you to keep your follow up appointments with your medical provider. Current Hospital Diet Patient's current hospital diet: AHA Diet (Heart Healthy) Discharge Diet Recommended Diet: AHA Diet (Heart Healthy) Procedures Procedures Performed: PLEASE REFER TO HOSPITAL DISCHARGE SUMMARY Pending Studies Studies pending at discharge: no Laboratory Results Hemoglobin A1c Test 12/09/17 11:15 Range/Units Estimated Average Glucose 111 mg/dl Hemoglobin A1c 5.5 4.5-5.6 % Lipid Panel Test 12/10/17 05:24 Range/Units Triglycerides Level 81 0-150 mg/dl Cholesterol Level 149 0-200 mg/dl HDL Cholesterol 32 mg/dl Cholesterol/HDL Ratio 4.7 LDL Cholesterol, Calculated 101 mg/dl Medical Emergencies . Who to Call and When: Medical Emergencies: Call 911 immediately if you experience any of the following warning signs and symptoms of Stroke: * Sudden numbness or weakness of the face, arm or leg, especially on one side of the body * Sudden confusion, trouble speaking or understanding * Sudden trouble seeing in one or both eyes * Sudden trouble walking, dizziness, loss of balance or coordination * Sudden severe headache with no cause Do not delay calling 911 if you experience any warning signs or symptoms of a stroke. Delay in seeking medical attention may affect what treatments can be given to you. . Non-Emergent Contact Non-Emergency issues call your: Primary Care Provider, Neurologist, Surgeon Call Non-Emergent contact if: you have a fever, you have any medication questions . . "Provider Documentation" section prepared by Juice Nelson. . Stroke Core Measures Reason no t-PA for Stroke: Treatment not indicated Reason no antithrom by day 2: Treatment provided - N/A Reason no antithrom at D/C: Treatment provided - N/A Reason no statin at D/C: Treatment provided - N/A Reason no anticoag w/a fib: Treatment provided - N/A VTE Core Measure Inpt VTE Proph given/why not?: Enoxaparin (Lovenox)SQ
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
--- NOTE | 2017-12-10 19:51 | DOBUTAMINE ECHO ---
*NOTICE TO RECEIVING CONSTITUTION PARTY AGENCY This information is strictly Confidential and protected under [place] law. [place] law prohibits you from making any further disclosure of this information unless further disclosure is expressly permitted by the written consent of the person to whom it pertains or is authorized by law. A general authorization for the release of medical or other information is not sufficient for this purpose. Hospital accepts no responsibility if the information is made available to any other person, INCLUDING THE PATIENT. Interpretation Summary * Name: MAICOL GALEAS [id number] Study Date: 12/10/2017 01:27 PM BP: 133/68 mmHg * Patient Location: .2T\S\S229\S\2 HR: 67 * : 1965 (M/d/yyyy) Gender: Male Height: 67 in * Age: 52 yrs Ethnicity: CA Weight: 147 lb * Ordering Physician: Luana Luo * Referring Physician: Cory TOUSSAINT * Performed By: Angelika Youssef RDCS * * Reason For Study: Pre-op eval for R CEA * BSA: 1.8 m2 * The study was technically adequate. * -- Conclusions -- * STRESS STUDY: * Normal pharmacologic stress echocardiogram. * No echocardiographic or EKG evidence of myocardial ischemia having achieved heart rate adequate for diagnostic purposes. * No symptoms suggestive of angina were induced. * Refer to separate report for details of complete resting study performed earlier today. Procedure Details * DOBUTAMINE ECHO, CPT#[id number] * ECHO DOPPLER, CPT #[id number] * ECHO COLOR FLOW, CPT #[id number] Left Ventricle * The left ventricle is normal in size. There is normal left ventricular wall thickness. The resting LV Ejection Fraction = 60-65%. Left ventricular systolic function is normal at rest. * Resting wall motion: Normal. Stress wall motion: Appropriate increase in Left ventricular systolic function and decrease in cavity size. No stress induced segmental wall motion abnormalities. Stress Parameters * The baseline EKG reveals sinus rhythm at [address] segments. * The stress EKG was negative for ischemia. A transient accelerated junctional rhythm was noted with pharmacologic stress that resolved spontaneously. * The stress portion of this study was personally supervised by the undersigned interpreting physician. * Rest heart rate was '67' BPM. * Rest blood pressure was '133/68' * Maximum heart rate achieved was 153 bpm. * Maximum heart rate was 92 % of maximum age-predicted heart rate. * Maximum blood pressure was '190/90' * Maximum Dobutamine infusion rate was '30' mcg/kg/min. * A total of 0.5 mg of intravenous Atropine was used to supplement Dobutamine for heart rate response. * Dobutamine infusion was terminated due to achieving target heart rate * A total of 10 mg of IV Metoprolol was administered to reverse Dobutamine-induced tachycardia. * The patient did not exhibit any symptoms during drug infusion. MMode 2D Measurements and Calculations IVSd 1.0 cm LVIDd 4.1 cm LVIDs 2.7 cm LVPWd 1.3 cm IVS/LVPW 0.81 FS 33.8 % EDV(Teich) 74.3 ml ESV(Teich) 27.4 ml EF(Teich) 63.1 % EDV(cubed) 69.0 ml ESV(cubed) 20.0 ml EF(cubed) 70.9 % LV mass(C)d 162.2 grams LV mass(C)dI 91.4 grams/m\S\2 SV(Teich) 46.8 ml SI(Teich) 26.4 ml/m\S\2 SV(cubed) 48.9 ml SI(cubed) 27.6 ml/m\S\2 LA dimension 3.0 cm LVAd ap4 28.7 cm\S\2 LVLd ap4 7.8 cm EDV(MOD-sp4) 86.5 ml EDV(sp4-el) 89.6 ml LVAs ap4 14.2 cm\S\2 LVLs ap4 6.4 cm ESV(MOD-sp4) 26.8 ml ESV(sp4-el) 26.7 ml EF(MOD-sp4) 69.0 % EF(sp4-el) 70.2 % LVAd ap2 26.4 cm\S\2 LVLd ap2 8.0 cm EDV(MOD-sp2) 72.6 ml EDV(sp2-el) 73.9 ml LVAs ap2 13.9 cm\S\2 LVLs ap2 7.1 cm ESV(MOD-sp2) 24.0 ml ESV(sp2-el) 23.2 ml EF(MOD-sp2) 66.9 % EF(sp2-el) 68.7 % LVLd %diff 2.3 % EDV(MOD-bp) 80.9 ml LVLs %diff 9.4 % ESV(MOD-bp) 26.5 ml EF(MOD-bp) 67.3 % SV(MOD-sp4) 59.7 ml SI(MOD-sp4) 33.7 ml/m\S\2 SV(MOD-sp2) 48.6 ml SI(MOD-sp2) 27.4 ml/m\S\2 SV(MOD-bp) 54.4 ml SI(MOD-bp) 30.7 ml/m\S\2 SV(sp4-el) 62.9 ml SI(sp4-el) 35.5 ml/m\S\2 SV(sp2-el) 50.7 ml SI(sp2-el) 28.6 ml/m\S\2
--- NOTE | 2017-12-27 13:59 | EDITING REQUIRED CODING QUERY ---
CODING QUERY To promote full compliance with coding requirements relating to patient care, provider participation is requested in all cases of silverlight developer uncertainty. Please assist us with the question(s) below: Coding Question(s): Please clarify the cause of the stroke: Occlusion of carotid artery ( ) Carotid Embolism ( X ) LICA Occlusion ( ) Other ( ) Physician's Response(s): Thank you Jesika Sanders Principal Diagnosis: "_that condition established after study, to be chiefly responsible for occasioning the admission of the patient to the hospital for care." Co-Existing Principal Diagnosis: "_when two or more diagnoses equally meet the criteria for principal diagnosis as determined by the circumstances of admission, diagnostic work up, and/or therapy provided, and the Alphabetic Index, Tabular List, or another coding guideline does not provide sequencing direction, any one of the diagnoses may be sequenced first." "When the physician has documented what appears to be a current diagnosis in the body of the record, but has not included the diagnosis in the final diagnostic statement, the physician should be asked whether the diagnosis should be added." (Source [facility] 2 QTR90. p3-4)
== END 2017-12-10 19:02 | disposition home or self-care (01) | DRG 66 ==
LOC: C.EDB 10:37 → C.2T 13:07 → ENRESERV 14:37 → C.2T 19:39
PROVIDERS: ADMIT Internal Medicine; ATTEND Internal Medicine
DX: I63.133 Cerebral infarction due to embolism of bilateral carotid arteries (principal); F17.200 Nicotine dependence, unspecified, uncomplicated; I10 Essential (primary) hypertension; Z79.82 Long term (current) use of aspirin; Z82.3 Family history of stroke

== ENCOUNTER 2018-06-14 05:08 | Inpatient (IN) | payer OTHER ==
[2018-06-07 14:19] VITALS: BMI 23.0
--- NOTE | 2018-06-07 16:01 | PAT Medication Instructions ---
Service Date Jun 07, 2018. Current Home Medication List Amlodipine (Norvasc), 10 MG PO QAM Aspirin (Aspirin Ec), 81 MG PO QPM Atorvastatin (Lipitor), 80 MG PO QAM Clopidogrel (Plavix), 75 MG PO QAM Lisinopril (Zestril), 20 MG PO QAM Medication Instructions For Your Scheduled Surgery - Check with surgeon and prescribing physician for instructions: Clopidogrel (Plavix), 75 MG PO QAM Aspirin (Aspirin Ec), 81 MG PO QPM - Hold the following medications the morning of surgery: Lisinopril (Zestril), 20 MG PO QAM - Take the following medications the morning of surgery with a sip of water: Amlodipine (Norvasc), 10 MG PO QAM Atorvastatin (Lipitor), 80 MG PO QAM If you have any questions please call us at [phone] or [phone] or [phone]
[2018-06-14] VITALS (16 sets, daily range): BP systolic 93–152; BP diastolic 59–103; PULSE 57–92; TEMP 36.5–36.8; O2SAT 92–98; Ht 172.7 cm; Wt 69.1 kg
[~2018-06-14] VITALS: Ht 172.7 cm; Wt 69.1 kg
[~2018-06-14 05:08] MED LIST: AMLO10TA3 PO; ASPI81TA28 PO; ATOR-26 PO; CLOP1TAB15 PO; LISI-725 PO
[2018-06-14] MEDS ORDERED: LACTATED RINGER'S 1000ML 1,000 ML IV SCH ×2 (06:00)
[2018-06-14] MEDS ORDERED: CEFAZOLIN 1000MG IV PUSH 7.5 ML IV SCH (06:00)
--- NOTE | 2018-06-14 06:14 | History and Physical ---
History & Physical Date of Service Jun 14, 2018. History & Physical CC: Severe right internal carotid artery stenosis History of Present Illness The patient is a 52 year old male with hx of HTN, admitted after an episode of aphasia/dysarthria, early this year for BL ICAS noted on CTA. Pt states no previous similar event. and sx resolved within 24 hrs. He, on workup, was found to have an occluded left carotid artery with significant right carotid stenosis. In the interim, he has had a cardiac stress test, which shows no significant or concerning processes. His left ejection fraction is 60-65%. Father had CVA. Denies unilateral extremity weakness or numbness, amaurosis, facial droop, DAO, fever, chills, recent illness, chest pain, palpitations, SOB, abd pain, N/V, rest pain, claudication, other complaints. Smokes 1/2 PPD. Allergies Coded Allergies: No Known Allergies (Unverified , 12/09/17) Home Medications Scheduled Amlodipine (Norvasc), 10 MG PO 0630 Aspirin (Aspirin Ec), 81 MG PO 1830 Problem List Medical Problems: (1) Acute ischemic stroke (2) No Known Active Medical Problems Surgical / Medical History Hx Cardiac Surgery: No Hx Abdominal Surgery: No Hx Cancer Surgery: No Hx Thoracic Surgery: No Hx Orthopedic: No Hx Urinary Tract Surgery: No HX Other Surgery: No Past Medical/Surgical History: Hypertension Family History Father CVA Social History Smoking Status: Current Every Day Smoker Hx Tobacco Use In Past Year?: Yes Hx Alcohol Use - Type & Amnt: No Hx Substance Use -Type & Amnt: No Review of Systems Constitutional: No chills, No fever, No malaise Skin: No change in color Eyes: No visual changes ENMT: No sore throat Respiratory: No cough, No RUEDA, No short of breath Cardiovascular: No chest pain, No palpitations, No syncope, No edema, No intermittent claudication Gastrointestinal: No abdominal pain, No vomiting, No anorexia Neurologic: + problem reported (aphasia, resolved), No dizziness, No weakness, No headache, No lethargy, No numbness, No tingling Physical Exam Constitutional: General Apperance: heathly-appearing, well-nourished, well-developed Level of Distress: NAD Ambulation: ambulating normally Psychiatric: Mental Status: active & alert, normal mood, normal affect Orientation: oriented except where noted, to time, to place, to person Memory: recent memory normal, remote memory normal Head: normocephalic, atraumatic Eyes: EOM: EOMI ENMT: normal ENT inspection, hearing grossly normal Neck: supple, trachea midline Lungs: Respiratory effort: no dyspnea Auscultation: no rales/crackles, no rhonchi, decreased breath sounds, expiratory wheezing Cardiovascular: Apical Impulse: not displaced Heart Auscultation: RRR, no rubs, no gallops Peripheral Pulses: Pulses: full and equal, in all extremities except if noted Bruits: carotid bruit on the right Carotid Pulse: normal on the left, normal on the right Brachial Pulses: normal on the left, normal on the right Radial Pulse: normal on the left, normal on the right Femoral Pulse: normal on the left, normal on the right Posterior Tibialis Pulse: decreased on the left, decreased on the right Dorsalis Pedis Pulse: decreased on the left, absent on the right Abdomen: Bowel Sounds: normal Inspection & Palpation: soft, non-distended, no tenderness, guarding & rebound Musculoskeletal: normal strength (5/5 throughout), normal tone Extremities: Upper Right: no cyanosis, no edema, no varicosities Upper Left: no cyanosis, no edema, no varicosities Lower Right: no cyanosis, no edema, no varicosities Lower Left: no cyanosis, no edema, no varicosities Neurologic: Cranial Nerves: grossly intact Sensation: grossly intact ASSESSMENT and PLAN: R ICAS L ICA occlusion with CVA Plan: Patient is admitted for a right CEA. I have discussed the risks options and benefits of the procedure with the patient. The patient understands the risks options and benefits and agrees to the procedure.
[2018-06-14] MEDS ORDERED: FENTANYL CITRATE INJ 50 MCG/1 ML 2 ML VIAL ONE ×2 (06:40→07:58)
[2018-06-14] MEDS ORDERED: MIDAZOLAM HCL 1 MG/ML 2ML VIAL ONE (06:42)
[2018-06-14] MEDS ORDERED: HEPARIN SOD (PORCINE) 1000 UNIT/ML 10 ML VIAL ONE ×2 (06:53→08:25)
[2018-06-14] MEDS ORDERED: BUPIVACAINE/EPINEPHRINE 0.5% MPF 1:200,000 30 ML VIAL ONE (06:54)
[2018-06-14] MEDS ORDERED: LIDOCAINE HCL 1% 20 ML VIAL ONE (06:54)
[2018-06-14] MEDS ORDERED: CEFAZOLIN SOD 1 GM VIAL ONE (06:54)
[2018-06-14] MEDS ORDERED: THROMBIN FOR SOLN 20000 UNIT KIT ONE (06:54)
[2018-06-14] MEDS ORDERED: GELATIN SPONGE SZ 100 ONE (06:54)
--- NOTE | 2018-06-14 07:27 | History & Physical Bridge Note ---
H&P Re-Evaluation Bridge Note: I have examined the patient, reviewed the History & Physical and in the interval since the performance of the History & Physical I have noted the following changes of clinical significance: No changes noted
[2018-06-14] MEDS ORDERED: FENTANYL CITRATE INJ 50 MCG/1 ML 2 ML VIAL IV PRN (08:00)
[2018-06-14] MEDS ORDERED: ATROPINE SULFATE 0.1 MG/ML 5ML SYR IV PRN (08:00)
[2018-06-14] MEDS ORDERED: NALOXONE HCL 0.4 MG/1 ML VIAL/CARP IV PRN (08:00)
[2018-06-14] MEDS ORDERED: MEPERIDINE HCL 25 MG/ML CARP IV PRN (08:00)
[2018-06-14] MEDS ORDERED: LABETALOL HCL IV 5 MG/ML 20ML IV PRN (08:00)
[2018-06-14] MEDS ORDERED: FLUMAZENIL 0.1 MG/1 ML 10 ML VIAL IV PRN (08:00)
[2018-06-14] MEDS ORDERED: PHENYLEPHRINE 100MCG/ML 5ML SYR IV PRN (08:00)
[2018-06-14] MEDS ORDERED: ONDANSETRON INJ 2 MG/ML 2 ML VIAL IV PRN ×2 (08:00→10:15)
[2018-06-14] MEDS ORDERED: EpHEDrine SULFATE INJ 50 MG/ML AMP IV PRN (08:00)
[2018-06-14] MEDS ORDERED: HYDROmorphone INJ 0.5 MG/0.5 ML SYR IV PRN (08:00)
[2018-06-14] MEDS ORDERED: LIDOCAINE HCL 2% 2 ML VIAL (20MG/ML) ONE (08:13)
[2018-06-14] MEDS ORDERED: PROPOFOL IV EMULSION 10 MG/ML 20 ML VIAL ONE (08:13)
[2018-06-14] MEDS ORDERED: ROCURONIUM BROMIDE 10 MG/ML 5 ML VIAL ONE ×2 (08:13→08:18)
[2018-06-14] MEDS ORDERED: DEXAMETHASONE SOD INJ 4 MG/ML VIAL ONE (08:14)
[2018-06-14] MEDS ORDERED: GLYCOPYRROLATE INJ 0.2 MG/ML VIAL ONE ×2 (08:14→10:15)
[2018-06-14] MEDS ORDERED: ONDANSETRON INJ 2 MG/ML 2 ML VIAL ONE (08:14)
[2018-06-14] MEDS ORDERED: PHENYLEPHRINE HCL INJ 10 MG/ML VIAL ONE (08:14)
[2018-06-14] MEDS ORDERED: EpHEDrine SULFATE 50MG/5ML SYR ONE (08:14)
[2018-06-14] MEDS ORDERED: NITROGLYCERIN 5 MG/ML 10 ML VIAL ONE (08:21)
--- NOTE | 2018-06-14 10:10 | [facility] Post Operative Brief Note ---
Immediate Operative Summary Operative Date Jun 14, 2018. Pre-Operative Diagnosis Severe right internal carotid artery stenosis Post-Operative Diagnosis Severe right internal carotid artery stenosis Procedure(s) Performed Right Carotid Endarterectomy, Patch angioplasty. Surgeon Mechanical Systems Engineer Surgeon(s) CYNDI August. Alyssa Villafana MD Estimated Blood Loss 50ml Findings Consistent with Post-Op Diagnosis Specimens A. Right Carotid Plaque Drains None Anesthesia Type General Complication(s) none Disposition Accompanied Pt To Recover: no Disposition: Recovery Room / PACU
[2018-06-14] MEDS ORDERED: MoRPHine SULFATE 4 MG/ML 1 ML CARP\\VIAL IV PRN (10:15)
[2018-06-14] MEDS ORDERED: NEOSTIGMINE METHYLSULFATE 5 MG/5 ML SYR ONE (10:15)
[2018-06-14] MEDS ORDERED: OXYCODONE/ACETAMINOPHEN 5-325 TAB PO PRN (10:15)
--- NOTE | 2018-06-14 11:35 | Anesthesiology Progress Note ---
Anesthesia Post Op Note Date & Time Jun 14, 2018 at 11:34 Vital Signs Pain Intensity: 0 Vital Signs Past 12 Hours Date Time Temp Pulse Resp B/P (MAP) Pulse Ox O2 Delivery O2 Flow Rate FiO2 06/14/18 11:15 61 16 123/76 96 Oxymask 3 06/14/18 11:05 67 16 127/73 95 Oxymask 3 06/14/18 10:55 63 16 136/71 98 Oxymask 5 06/14/18 10:48 36.4 78 20 150/79 96 Oxymask 5 06/14/18 05:42 36.5 76 20 152/103 95 Room Air Notes Mental Status: alert / awake / arousable, participated in evaluation Pt Amnestic to Procedure: Yes Nausea / Vomiting: adequately controlled Pain: adequately controlled Airway Patency, RR, SpO2: stable & adequate BP & HR: stable & adequate Hydration State: stable & adequate Anesthetic Complications: no major complications apparent The patient did well. He is awake and stable. He is moving all extremities.
[2018-06-14] MEDS ORDERED: D5W AND 1/2NSS 1,000 ML IV SCH (12:00)
--- NOTE | 2018-06-14 12:51 | Critical Care Consultation ---
Critical Care Consultation Date of Consultation: Jun 14, 2018. Attending Physician: Bairon Wilson M.D. Reason for Consultation: Post carotid endarterectomy History of Present Illness Patient is a 52-year-old male with a history of peripheral vascular disease status post CVA in December 2017 who was found to have a Right internal carotid artery stenosis who presents today from an elective postop right carotid endarterectomy. Past Medical/Surgical History Hypertension Tobacco use Social History Smoking Status: Current Every Day Smoker Housing Status: other (Incarcerated) Occupation Status: other Allergies Coded Allergies: No Known Allergies (Unverified , 06/14/18) Home Medications Scheduled Amlodipine (Norvasc), 10 MG PO QAM Aspirin (Aspirin Ec), 81 MG PO QPM Atorvastatin (Lipitor), 80 MG PO QAM Clopidogrel (Plavix), 75 MG PO QAM Lisinopril (Zestril), 20 MG PO QAM Current Inpatient Medications Current Inpatient Medications Medications (Trade) Dose Ordered Sig/Erasmo Route Start Time Stop Time Status Last Admin Dose Admin Cefazolin Sodium 7.5 ml @ 2.5 mls/min PREOP IV 06/14/18 06:00 06/14/18 18:00 06/14/18 07:30 2.5 MLS/MIN Lactated Ringer's 1,000 ml @ 80 mls/hr [id number] IV 06/14/18 06:00 06/14/18 18:29 Lactated Ringer's 1,000 ml @ 15 mls/hr Q24H IV 06/14/18 06:00 06/15/18 05:59 06/14/18 06:11 15 MLS/HR Hydromorphone HCl (Dilaudid Inj) 0.5 mg Q5M PRN IV 06/14/18 08:00 06/14/18 14:00 Fentanyl Citrate (Fentanyl Inj) 25 mcg Q5M PRN IV 06/14/18 08:00 06/14/18 14:00 Naloxone HCl (Narcan Inj) 0.2 mg Q2M PRN IV 06/14/18 08:00 06/14/18 14:00 Meperidine HCl (Demerol Inj) 12.5 mg Q5M PRN IV 06/14/18 08:00 06/14/18 14:00 Ondansetron HCl (Zofran Inj) 4 mg ONE PRN IV 06/14/18 08:00 06/14/18 14:00 Flumazenil (Romazicon Inj) 0.2 mg Q2M PRN IV 06/14/18 08:00 06/14/18 14:00 Labetalol HCl (Normodyne IV) 5 mg Q5M PRN IV 06/14/18 08:00 06/14/18 14:00 Ephedrine Sulfate (EpHEDrine SULFATE INJ) 5 mg Q5M PRN IV 06/14/18 08:00 06/14/18 14:00 Atropine Sulfate (Atropine Sulfate 0.1mg/ml Inj) 0.5 mg Q1M PRN IV 06/14/18 08:00 06/14/18 14:00 Phenylephrine HCl (Grzegorz-Synephrine 500MCG/5ML Syr) 100 mcg Q5M PRN IV 06/14/18 08:00 06/14/18 14:00 Oxycodone/ Acetaminophen (Percocet 5-325mg Tab) FOR MODERATE PAIN ... Q4H PRN PO 06/14/18 10:15 06/28/18 10:14 Morphine Sulfate (MoRPHine SULFATE INJ) 4 mg Q4H PRN IV 06/14/18 10:15 06/28/18 10:14 Ondansetron HCl (Zofran Inj) 4 mg Q6H PRN IV 06/14/18 10:15 07/14/18 10:14 Cefazolin Sodium 1000 mg/Syringe 7.5 ml @ 2.5 mls/min Q8H IV 06/14/18 12:00 06/14/18 20:35 Dextrose/Sodium Chloride 1,000 ml @ 125 mls/hr Q8H IV 06/14/18 12:00 07/14/18 11:59 06/14/18 12:01 125 MLS/HR Enoxaparin Sodium (Lovenox Inj) 30 mg Q12H SQ 06/15/18 09:00 07/15/18 08:59 UNV Amlodipine Besylate (Norvasc Tab) 10 mg QAM PO 06/15/18 09:00 07/15/18 08:59 Aspirin (Ecotrin Tab) 81 mg QPM PO 06/14/18 21:00 07/14/18 20:59 Atorvastatin Calcium (Lipitor Tab) 80 mg QAM PO 06/15/18 09:00 07/15/18 08:59 Clopidogrel Bisulfate (plAVix TAB) 75 mg QAM PO 06/15/18 09:00 07/15/18 08:59 Lisinopril (Zestril Tab) 20 mg QAM PO 06/15/18 09:00 07/15/18 08:59 Review of Systems Constitutional: No chills, No sweats ENT: + sore throat Respiratory: No cough, No sputum, No wheezing Cardiovascular: No chest pain, No orthopnea Abdomen: No pain, No nausea, No vomiting Physical Exam Date Time Temp Pulse Resp B/P (MAP) Pulse Ox O2 Delivery O2 Flow Rate FiO2 06/14/18 11:45 59 16 118/64 (82) 94 Nasal Cannula 2.0 06/14/18 11:35 36.8 64 16 125/63 (83) 92 Room Air 06/14/18 11:15 61 16 123/76 96 Oxymask 3 06/14/18 11:05 67 16 127/73 95 Oxymask 3 06/14/18 10:55 63 16 136/71 98 Oxymask 5 06/14/18 10:48 36.4 78 20 150/79 96 Oxymask 5 06/14/18 05:42 36.5 76 20 152/103 95 Room Air General: Alert. nontoxic. Skin: Warm, dry, Neck: Surgical dressing dry and intact without shadowing Ears, nose, mouth and throat: airway patent Cardiovascular: Normal peripheral perfusion Respiratory: no respiratory distress Gastrointestinal: Non distended Musculoskeletal: No deformity Laboratory Results Last 24 Hours Test 06/14/18 11:52 Bedside Glucose 116 mg/dl Assessment & Plan PLAN: Neuro: Status post CVA -Continue high dose statin, aspirin Resp: Tobacco use -Encouraged smoking cessation CV: Hypertension -Continue amlodipine ID: Given Ancef preoperatively GI/Nutrition: Tolerating diet Heme: DVT prophylaxis: Lovenox Endocrine: ICU hyperglycemia protocol Vascular access: Peripheral IVs Code Status: Full
[2018-06-14] MEDS: CEFAZOLIN IV 1,000 MG in SYRINGE 0 ML IV SCH ×2 (13:37→20:28)
--- NOTE | 2018-06-14 18:00 | [facility] Operative Report ---
Operative Report Operative Date Jun 14, 2018. Pre-Operative Diagnosis Severe right internal carotid artery stenosis Post-Operative Diagnosis Severe right internal carotid artery stenosis Procedure(s) Performed Right Carotid Endarterectomy, Patch angioplasty. Surgeon Spindle Maker Surgeon(s) CYNDI August. Alyssa Villafana MD Estimated Blood Loss 50ml Findings Extensive right ICA plaque Specimens A. Right Carotid Plaque Drains None Anesthesia Type General Complication(s) none Disposition no Recovery Room / PACU Indications Mr. Macedo is a 52 year old male with a history of HTN who was admitted in December 2017 after an episode of aphasia/dysarthria. He was found to have L ICA occlusion and R ICA 75% stenosis on CTA. He states he has had no previous similar event and his symptoms resolved within 24 hrs. The risks, benefits and alternatives of carotid endarterectomy were discussed with him and he agreed to proceed. Description of Procedure The patient was brought to the operating room and placed in the supine position. The procedure was performed under general anesthesia. He was given preoperative antibiotics. The right neck was prepped and draped in the standard sterile fashion. A longitudinal skin incision was made overlying the anterior border of the sternocleidomastoid muscle. The incision was deepened through the platysma with electrocautery. The sternocleidomastoid muscle was retracted laterally. The internal jugular vein was identified. Dissection along the medial border of the jugular vein revealed the facial vein which was ligated with 2-0 silk and transected. The common carotid, internal carotid and external carotid arteries were exposed and dissected. The vagus and hypoglossal nerves were identified and preserved. The ansa cervicalis was transected to improve the exposure of the internal carotid artery. A vessel loop was placed around the external carotid artery. 7000 U IV heparin were administered. Three minutes after heparin administration the internal carotid artery was clamped and the common carotid artery was clamped with a DeBakey clamp. An arteriotomy was performed on the anterolateral surface of the common carotid artery with a #11 blade scalpel and extended into the internal carotid artery using a Pott's scissors. A Sundt shunt was inserted into the common and internal carotid arteries. The plaque had significant narrowing at the origin of the internal carotid with loose pedunculated plaque. The endarterectomy plane was developed with a plaque elevator. The plaque was transected proximally in the common carotid artery. In the distal internal carotid artery, the plaque was feathered off, leaving a smooth endpoint. Eversion endarterectomy of the external carotid was performed and the carotid plaque was removed. The endarterectomized surface was gently irrigated with heparinized saline solution. All remaining free debris was removed with a fine forceps. The distal endarterectomy endpoint was inspected and 2 7-0 Prolene sutures were used to tack down the distal endpoint to secure the distal intima. The arteriotomy was closed using a patch angioplasty using a Lagrange Acuseal patch. The patch was trimmed and the patch angioplasty was performed using a continuous CV-6 suture. The suture was started at the apex of the arteriotomy in the internal carotid artery and run on each side. The patch was trimmed to the appropriate size. The shunt was removed prior to completion of the suture line. The internal carotid and external carotid were backbled. The common carotid was forwardbled. Flow was first reestablished into the external carotid artery and then into the internal carotid artery. The suture line was checked for hemostasis. A 6-0 Prolene was used to reinforce the apex of the arteriotomy. Needle hole bleeding was controlled with topical application of gelfoam thrombin. Doppler evaluation revealed excellent flow signals through the common carotid, internal carotid and external carotid arteries. After ensuring hemostasis, the platysma was closed with 3-0 Vicryl and the skin was closed with 4-0 Vicryl. Dermabond was used over the incision. Sterile dressings were then applied. The patient was awakened and noted to have no gross neurological deficits. He tolerated the procedure well and was brought to the PACU in good condition. Dr. Wilson was scrubbed and present for the entire procedure. I attest to the content of the Intraoperative Record and any orders documented therein. Any exceptions are noted below.
[2018-06-14] MEDS ORDERED: NURSING VERBAL MED ORDER ONE (18:30)
[2018-06-14] MEDS ORDERED: ASPIRIN 81 MG ECTAB PO SCH (21:00)
[2018-06-15] VITALS (13 sets, daily range): BP systolic 110–133; BP diastolic 56–69; PULSE 64–73; TEMP 36.4–36.6; O2SAT 93–95
[2018-06-15 04:37] LABS: HEMOGLOBIN 11.7 g/dL (14.0-18.0); MEAN CELL VOLUME 86.1 fL (80-100); MEAN CORPUSCULAR HEMOGLOBIN 29.6 pg (25-34); MEAN CORPUSCULAR HGB CONC 34.4 g/dl (32-36); MEAN PLATELET VOLUME 8.5 fL (7.4-10.4); PLATELET COUNT 337 K/uL (130-400); RED CELL DISTRIBUTION WIDTH CV 12.9 % (11.5-14.5); RED CELL DISTRIBUTION WIDTH SD 41.5 fL (36.4-46.3); WHITE BLOOD COUNT 14.16 K/uL (4.8-10.8)
[2018-06-15 04:53] LABS: INR 1.1 (0.9-1.1)
[2018-06-15 05:01] LABS: CREATININE 0.66 mg/dl (0.60-1.40)
--- NOTE | 2018-06-15 07:25 | Critical Care Progress Note ---
Critical Care Progress Note Date of Service Jun 15, 2018. ICU Day ICU Day Number: [address] Petit Subjective No complaints of headache, shortness of breath, difficulty swallowing, tolerating eating breakfast desires to go home today. Objective General: Alert. nontoxic. Skin: Warm, dry, Head: Atraumatic Ears, nose, mouth and throat: airway patent Neck: Incision clean dry intact, mild swelling, no evidence of airway compromise , no odynophagia Cardiovascular: Normal peripheral perfusion Respiratory: no respiratory distress Gastrointestinal: Non distended Musculoskeletal: No deformity Assessment & Plan PLAN: Neuro: Status post CVA -Continue high dose statin, aspirin Resp: Tobacco use -Encouraged smoking cessation CV: Hypertension -Continue amlodipine ID: Given Ancef preoperatively GI/Nutrition: Tolerating diet Heme: DVT prophylaxis: Lovenox Endocrine: ICU hyperglycemia protocol Vascular access: Peripheral IVs Code Status: Full Anticipate follow-up with vascular surgery as needed, will sign off from critical care Data Medications: Current Inpatient Medications Medications (Trade) Dose Ordered Sig/Erasmo Route Start Time Stop Time Status Last Admin Dose Admin Oxycodone/ Acetaminophen (Percocet 5-325mg Tab) FOR MODERATE PAIN ... Q4H PRN PO 06/14/18 10:15 06/28/18 10:14 06/14/18 14:28 2 TAB Morphine Sulfate (MoRPHine SULFATE INJ) 4 mg Q4H PRN IV 06/14/18 10:15 06/28/18 10:14 Ondansetron HCl (Zofran Inj) 4 mg Q6H PRN IV 06/14/18 10:15 07/14/18 10:14 Enoxaparin Sodium (Lovenox Inj) 30 mg Q12H SQ 06/15/18 09:00 07/15/18 08:59 Amlodipine Besylate (Norvasc Tab) 10 mg QAM PO 06/15/18 09:00 07/15/18 08:59 Aspirin (Ecotrin Tab) 81 mg QPM PO 06/14/18 21:00 07/14/18 20:59 06/14/18 20:28 81 MG Atorvastatin Calcium (Lipitor Tab) 80 mg QAM PO 06/15/18 09:00 07/15/18 08:59 Clopidogrel Bisulfate (plAVix TAB) 75 mg QAM PO 06/15/18 09:00 07/15/18 08:59 Lisinopril (Zestril Tab) 20 mg QAM PO 06/15/18 09:00 07/15/18 08:59 Vital Signs: Date Time Temp Pulse Resp B/P (MAP) Pulse Ox O2 Delivery O2 Flow Rate FiO2 06/15/18 07:01 69 15 123/68 (86) 94 06/15/18 06:01 73 14 132/64 (86) 95 06/15/18 05:01 69 16 117/56 (76) 94 06/15/18 04:01 36.6 64 1 118/56 (76) 95 Room Air 06/15/18 03:01 67 14 133/65 (87) 93 Room Air 06/15/18 02:01 64 17 118/60 (79) 93 Room Air 06/15/18 01:01 65 16 110/58 (75) Room Air 06/15/18 00:01 36.6 67 17 120/58 (78) 94 Room Air 06/14/18 23:01 66 17 118/65 (82) 93 Room Air 06/14/18 22:01 67 16 116/64 (81) 92 Room Air 06/14/18 21:01 92 23 142/70 (94) 94 Room Air 06/14/18 20:01 36.5 62 17 93/75 (81) 94 Room Air 06/14/18 20:00 93 Room Air 06/14/18 19:01 61 19 112/63 (79) 93 Room Air 06/14/18 18:00 67 19 128/78 (95) 96 Room Air 06/14/18 16:00 36.6 69 16 95/62 (73) 93 Room Air 06/14/18 14:00 74 20 128/72 (90) 98 Nasal Cannula 2.0 06/14/18 12:45 57 20 122/59 (80) 94 Nasal Cannula 2.0 06/14/18 12:30 62 15 119/67 (84) 98 Nasal Cannula 2.0 06/14/18 12:16 58 17 112/60 (77) 95 Nasal Cannula 2.0 06/14/18 12:00 62 21 114/61 (78) 96 Nasal Cannula 2.0 06/14/18 12:00 Nasal Cannula 2.0 06/14/18 11:45 59 16 118/64 (82) 94 Nasal Cannula 2.0 06/14/18 11:35 36.8 64 16 125/63 (83) 92 Room Air 06/14/18 11:15 61 16 123/76 96 Oxymask 3 06/14/18 11:05 67 16 127/73 95 Oxymask 3 06/14/18 10:55 63 16 136/71 98 Oxymask 5 06/14/18 10:48 36.4 78 20 150/79 96 Oxymask 5 Laboratory Results: Last 24 Hours Test 06/14/18 11:52 06/15/18 00:13 06/15/18 04:16 06/15/18 06:06 Bedside Glucose 116 mg/dl 141 mg/dl 121 mg/dl White Blood Count 14.16 K/uL Red Blood Count 3.95 M/uL Hemoglobin 11.7 g/dL Hematocrit 34.0 % Mean Corpuscular Volume 86.1 fL Mean Corpuscular Hemoglobin 29.6 pg Mean Corpuscular Hemoglobin Concent 34.4 g/dl RDW Standard Deviation 41.5 fL RDW Coefficient of Variation 12.9 % Platelet Count 337 K/uL Mean Platelet Volume 8.5 fL Prothrombin Time 11.4 SECONDS Prothromb Time International Ratio 1.1 Creatinine 0.66 mg/dl Est Creatinine Clear Calc Drug Dose 123.8 ml/min Estimated GFR () 127.0 Estimated GFR (Non- 109.6
--- NOTE | 2018-06-15 08:44 | Anesthesiology Progress Note ---
Anesthesia Post Op Note Date & Time Jun 15, 2018 at 08:43 Vital Signs Pain Intensity: 3.0 Vital Signs Past 12 Hours Date Time Temp Pulse Resp B/P (MAP) Pulse Ox O2 Delivery O2 Flow Rate FiO2 06/15/18 07:01 69 15 123/68 (86) 94 06/15/18 06:01 73 14 132/64 (86) 95 06/15/18 05:01 69 16 117/56 (76) 94 06/15/18 04:01 36.6 64 1 118/56 (76) 95 Room Air 06/15/18 03:01 67 14 133/65 (87) 93 Room Air 06/15/18 02:01 64 17 118/60 (79) 93 Room Air 06/15/18 01:01 65 16 110/58 (75) Room Air 06/15/18 00:01 36.6 67 17 120/58 (78) 94 Room Air 06/14/18 23:01 66 17 118/65 (82) 93 Room Air 06/14/18 22:01 67 16 116/64 (81) 92 Room Air 06/14/18 21:01 92 23 142/70 (94) 94 Room Air Notes Mental Status: alert / awake / arousable, participated in evaluation Pt Amnestic to Procedure: Yes Nausea / Vomiting: adequately controlled Pain: adequately controlled Airway Patency, RR, SpO2: stable & adequate BP & HR: stable & adequate Hydration State: stable & adequate Anesthetic Complications: no major complications apparent
[2018-06-15] MEDS ORDERED: ATORVASTATIN 40 MG TAB PO SCH (09:00)
[2018-06-15] MEDS ORDERED: AMLODIPINE BESYLATE 5 MG TAB PO SCH (09:00)
[2018-06-15] MEDS ORDERED: ENOXAPARIN 30 MG/0.3 ML SYR SQ SCH (09:00)
[2018-06-15] MEDS ORDERED: LISINOPRIL 20 MG TAB PO SCH (09:00)
[2018-06-15] MEDS ORDERED: CLOPIDOGREL BISULFATE 75 MG TAB PO SCH (09:00)
--- NOTE | 2018-06-15 13:43 | Discharge Instructions ---
Discharge Instructions Date of Service Jun 15, 2018. Admission Reason for Admission: Right Internal Carotid Artery Stenosis Discharge Discharge Diagnosis / Problem: post R carotid endarterectomy, R ICA stenosis Discharge Goals Goal(s): Therapeutic intervention, Prevent Disease Progression Activity Recommendations Activity Limitations: per Instructions/Follow-up section . Instructions / Follow-Up Instructions / Follow-Up SPECIAL CARE INSTRUCTIONS: Medications: * Continue to take Aspirin as directed. Incision Care: * You may shower, but do not rub incision. You may let the warm soapy water run over it. Be sure to dry the incision well after bathing. * Do not shave directly over the incision until it is healed. * DO NOT IMMERSE THE INCISION IN A TUB/POOL/etc. UNTIL HEALED. Restrictions: * Do not drive for at least one week or if you are still taking any narcotic pain medication. * Do not lift anything heavier than a gallon of milk for one week after going home. Possible Complications: * Numbness - It is normal to have some numbness around the incision. Numbness can extend beyond the incision to areas of the neck, ear and face. The numbness is due to bruising of nerves during the surgery and will gradually improve over a period of months. * Hoarseness/Difficulty Speaking and Swallowing - The bruising of nerves in the neck can also cause a hoarse voice, difficulty speaking or swallowing. This may improve over time, HOWEVER, if it continues for more than a few days please contact our office ([phone]). * Excessive Swelling - There will be some swelling immediately after surgery which usually resolves within one week. If you notice that the swelling is getting worse, notify your surgeon ([phone]). * Drainage/Bleeding - If there is any drainage or bleeding, it should be a very small amount (less than a teaspoon per day). If you have excessive bleeding or drainage from the incision, call your surgeon ([phone]) right away. ACTIVATION OF EMERGENCY MEDICAL SYSTEM: Call 911, immediately, if you experience any of the following: Warning Signs and Symptoms of Stroke: * Sudden numbness or weakness of the face, arm or leg, especially on one side of the body * Sudden confusion, trouble speaking or understanding * Sudden trouble seeing in one or both eyes * Sudden trouble walking, dizziness, loss of balance or coordination * Sudden severe headache with no cause Do not delay calling 911 if you experience any warning signs or symptoms of a stroke. Delay in seeking medical attention may affect what treatments can be given to you. Risk Factors for Stroke: You can reduce your chances of stroke by working with your medical provider to adopt a healthy lifestyle. Some specific ways to lower your chance of stroke are: * If you are a smoker, now is the time to stop smoking cigarettes * If you are diabetic, improve the control of your blood sugars * Avoid excessive amounts of alcohol * Control high blood pressure * Lose weight if you are overweight * Be sure to lead an active lifestyle * Eat a healthy diet low in salt, cholesterol and fat You should know about other risk factors for stroke that you are unable to control. These include: * Age 55 years or older * Male gender * Certain racial groups: , or / * Family History of Stroke, Mini stroke or Heart Attack * Sickle Cell Disease You will be receiving a call from the Vascular Surgery Nurse after you are discharged. FOLLOW UP VISIT: It is important for you to keep your follow up appointments with your medical provider. Keep any scheduled doctor appointments. Current Hospital Diet Patient's current hospital diet: AHA Diet (Heart Healthy) Discharge Diet Recommended Diet: AHA Diet (Heart Healthy) Procedures Procedures Performed: Right Carotid Endarterectomy, Patch angioplasty. Pending Studies Studies pending at discharge: no Medical Emergencies . Who to Call and When: Medical Emergencies: If at any time you feel your situation is an emergency, please call 911 immediately. . Non-Emergent Contact Non-Emergency issues call your: Primary Care Provider . "Provider Documentation" section prepared by Luana Luo. .
--- NOTE | 2018-06-15 13:46 | Progress Note ---
Progress Note Date of Service: Jun 15, 2018. Subjective 52 yo M POD #1 after R CEA, seen in f/u today. Pt ambulating well, taking PO without difficulty. Pt states pain tolerable. Denies any new complaints. Problem List Medical Problems: (1) Carotid artery stenosis Status: Acute (2) CVA (cerebral vascular accident) Status: Acute (3) Vertebral artery stenosis Status: Acute Objective Vital Signs Vital Signs Past 12 Hours Date Time Temp Pulse Resp B/P (MAP) Pulse Ox O2 Delivery O2 Flow Rate FiO2 06/15/18 12:00 36.4 71 18 117/66 (83) 95 Room Air 06/15/18 10:00 69 16 129/69 (89) 94 Room Air 06/15/18 08:00 36.4 68 15 133/68 (89) 95 Room Air 06/15/18 08:00 Room Air 06/15/18 08:00 Room Air 06/15/18 07:01 69 15 123/68 (86) 94 06/15/18 06:01 73 14 132/64 (86) 95 06/15/18 05:01 69 16 117/56 (76) 94 06/15/18 04:01 36.6 64 1 118/56 (76) 95 Room Air 06/15/18 03:01 67 14 133/65 (87) 93 Room Air 06/15/18 02:01 64 17 118/60 (79) 93 Room Air Exam CONST: A&O x3, NAD, generally healthy appearing male NECK: R neck incision C/D/I, + local edema and tenderness. + hematoma. trachea midline. CHEST: RRR lungs decreased but ctab ABD: soft nontender, + bs x 4 quad EXT: [facility]: no focal deficits Laboratory and Microbiology Results Past 24 Hours Test 06/15/18 00:13 06/15/18 04:16 06/15/18 06:06 06/15/18 11:34 Range/Units Bedside Glucose 141 121 103 70-99 mg/dl White Blood Count 14.16 4.8-10.8 K/uL Red Blood Count 3.95 4.7-6.1 M/uL Hemoglobin 11.7 14.0-18.0 g/dL Hematocrit 34.0 42-52 % Mean Corpuscular Volume 86.1 80-100 fL Mean Corpuscular Hemoglobin 29.6 25-34 pg Mean Corpuscular Hemoglobin Concent 34.4 32-36 g/dl RDW Standard Deviation 41.5 36.4-46.3 fL RDW Coefficient of Variation 12.9 11.5-14.5 % Platelet Count 337 130-400 K/uL Mean Platelet Volume 8.5 7.4-10.4 fL Prothrombin Time 11.4 9.0-12.0 SECONDS Prothromb Time International Ratio 1.1 0.9-1.1 Creatinine 0.66 0.60-1.40 mg/dl Est Creatinine Clear Calc Drug Dose 123.8 ml/min Estimated GFR () 127.0 Estimated GFR (Non- 109.6 ASSESSMENT and PLAN: s/p R LISSY TREADWELL Pt doing well pos top. OK [facility]. WIll see in office in 2 weeks.
--- NOTE | 2018-06-17 22:06 | DISCHARGE SUMMARY ---
ADMISSION DIAGNOSIS: Severe right internal carotid artery stenosis. DISCHARGE DIAGNOSES: 1. Status post right carotid endarterectomy. 2. Severe right internal carotid artery stenosis. DISCHARGE CONDITION: Stable. CONSULTATIONS IN THE HOSPITAL: Included critical care during his one night ICU stay. PROCEDURES IN THE HOSPITAL: Included his right carotid endarterectomy which was performed on 06/14/2018 with an EBL of 50 mL and no significant complications. HISTORY OF PRESENT ILLNESS: Mr. Macedo is a 52-year-old male who presented to Dr. Wilson after being admitted for an episode of dysarthria earlier this year and was noted to have bilateral internal carotid artery stenosis on CTA. The patient had no previous similar events and his symptoms resolved within 24 hours. Further workup demonstrated an occluded left internal carotid artery and a significant right internal carotid artery stenosis. Due to the severity of his right internal carotid artery stenosis, the patient was recommended to consider undergoing a right carotid endarterectomy to reduce his risk of CVA and the procedure, risks, benefits, and alternatives were discussed with the patient by Dr. Wilson. Patient expressed understanding and agreement to proceed. HOSPITAL COURSE: The patient was admitted on 06/14/2018 after undergoing his surgical procedure. He did essentially well postoperatively. He did have some edema and a hematoma on his right neck, however, he remained stable, and this did not demonstrate further significant growth past a few hours postoperatively. He remained stable as far as labs and vital signs. He was up ambulating in the room and taking well by mouth. He had mild discomfort in the neck which was easily controlled and had no neurological symptoms. He was felt to be stable enough for discharge on postop day 1. PHYSICAL EXAMINATION: VITAL SIGNS: On day of discharge, his vital signs were as follows, a pulse of 73, blood pressure of 133/68, pulse oximetry of 95% on room air, and a respiratory rate of 19. CONSTITUTIONAL: Patient is a healthy appearing, well-nourished, well-developed middle-aged male in no acute distress. He ambulated without assistance and was active, alert and oriented x4. HEAD: Normocephalic and atraumatic. EYES: EOMI. ENMT: Demonstrated no hearing loss, rhinorrhea, or pharyngeal erythema. NECK: The right side of his neck demonstrates his closed surgical incision. It is intact with sutures and skin glue. There is a moderately sized hematoma along the distal portion of the incision. The rest of his neck is soft and supple and his trachea is midline. He has no focal neurological deficit at this time. HEART: Regular. LUNGS: Clear. ABDOMEN: Soft and nontender. EXTREMITIES: He moves his upper extremities and lower extremities equally. His pulses are normal in his brachial, radial, femoral pulses. Lower extremity distal pulses are +1. He has brisk capillary refill and no sign of distal ischemia. DIET UPON DISCHARGE: Should be a low-cholesterol AHA diet. MEDICATIONS: Were reconciled in the chart and are as per his discharge instructions. FOLLOWUP: Should be with Dr. Wilson or his PA, Luana Luo, within 2 weeks for reevaluation and patient was advised to call the office with any other questions.
== END 2018-06-15 15:15 | DRG 27 ==
LOC: C.ACU 05:08 → C.MSICU 10:16 → ENRESERV 11:08
PROVIDERS: ADMIT Surgery Vascular Surgery; ATTEND Surgery Vascular Surgery
PROC: 03CL3ZZ Extirpation of Matter from Left Internal Carotid Artery, Percutaneous Approach (ICD-10-PCS; principal; 2018-06-14 07:30)
DX: I65.22 Occlusion and stenosis of left carotid artery (principal); I10 Essential (primary) hypertension; R47.01 Aphasia; R47.1 Dysarthria and anarthria; Z79.82 Long term (current) use of aspirin; Z82.3 Family history of stroke; F17.200 Nicotine dependence, unspecified, uncomplicated